=== PATIENT | female | born 1980 | race Caucasian/White ===

== ENCOUNTER 2017-08-04 15:42 | Emergency (ER) | payer MEDICAID ==
[~2017-08-04] VITALS: Ht 162.6 cm; Wt 95.0 kg
[~2017-08-04 15:42] MED LIST: ACET-2178 PO; ALBU2.5V13 NEB; LORA10TA7 PO; NORT25CA PO; TOPI50TA24 PO
[2017-08-04 22:56] VITALS: BP 137/73
== END 2017-08-04 22:59 | disposition home or self-care (01) ==
LOC: ER 16:23
DX: J20.9 Acute bronchitis, unspecified (principal); J45.909 Unspecified asthma, uncomplicated
CPT/HCPCS: 71045; 99283

== ENCOUNTER 2022-06-24 09:56 | Emergency (ER) | payer MEDICAID, OTHER ==
[~2022-06-24] VITALS: Ht 167.6 cm; Wt 105.0 kg
[~2022-06-24 09:56] MED LIST changes: -ACET-2178 PO; +TOPUD PO
[2022-06-24] MEDS ORDERED: KETOROLAC 30MG/ML VIAL IM ONE (13:45)
[2022-06-24 14:38] VITALS: BP 152/84
[2022-06-24 15:05] LABS: CLARITY URINE CLOUDY (CLEAR); COLOR URINE YELLOW (YELLOW); KETONES URINE NEGATIVE (NEGATIVE); LEUKOCYTE ESTERASE URINE 2+ (NEGATIVE); NITRITE URINE NEGATIVE (NEGATIVE); OCCULT BLOOD URINE NEGATIVE (NEGATIVE); PROTEIN URINE NEGATIVE (NEGATIVE); SPECIFIC GRAVITY URINE 1.021 (1.005-1.030); UROBILINOGEN URINE 0.2 E.U./dL (0.2-1.0)
[2022-06-24 15:10] LABS: UCG SCREEN NEGATIVE
[2022-06-24 15:23] LABS: BASOPHILS % 0.6 % (0.0-2.0); EOSINOPHILS % 4.1 % (0.0-5.0); HEMATOCRIT. 46.5 % (36.0-48.0); HEMOGLOBIN. 15.1 g/dL (12.0-16.0); LYMPHOCYTES % 37.4 % (20.0-50.0); MEAN CORPUSCULAR HEMOGLOBIN 29.5 pg (28.0-32.0); MEAN CORPUSCULAR VOLUME 90.9 fL (81.0-99.0); MEAN PLATELET VOLUME 10.4 fl (7.4-10.4); NEUTROPHILS % 52.9 % (40.0-76.0); PLATELET 207 x1000/uL (130-400); RED BLOOD CELL COUNT 5.11 mill/uL (4.2-5.4); RED CELL DISTRIBUTION WIDTH 13.5 % (11.6-14.6)
[2022-06-24 15:46] LABS: CHLORIDE 109 mEq/L (98-107)
[2022-06-24] MEDS ORDERED: IOHEXOL-300 100 ML BOTTLE ONE (17:41)
[2022-06-24] MEDS ORDERED: CEPH250C2 MT (18:11)
== END 2022-06-24 18:48 | disposition home or self-care (01) ==
LOC: ER 09:56
DX: R10.32 Left lower quadrant pain (principal); J45.909 Unspecified asthma, uncomplicated; Z86.011 Personal history of benign neoplasm of the brain; Z98.890 Other specified postprocedural states
CPT/HCPCS: 36415; 74177; 80053; 81003; 81025; 83605; 83690; 85025; 96372; 99285; J1885; Q9967

== ENCOUNTER 2024-12-28 08:18 | Emergency (ER) | payer OTHER ==
[~2024-12-28] VITALS: Ht 162.6 cm; Wt 112.0 kg
[~2024-12-28 08:18] MED LIST changes: +CEPH250C2 MT; +TOPI-95 PO; -TOPI50TA24 PO
[2024-12-28 08:28] VITALS: O2SAT 100
[2024-12-28 08:50] LABS: BASOPHILS % 0.4 % (0.0-2.0); EOSINOPHILS % 4.5 % (0.0-5.0); HEMATOCRIT. 39.8 % (36.0-48.0); HEMOGLOBIN. 13.6 g/dL (12.0-16.0); LYMPHOCYTES % 32.4 % (20.0-50.0); MEAN PLATELET VOLUME 9.4 fl (7.4-10.4); MONOCYTES % 5.1 % (2.0-8.0); NEUTROPHILS % 57.6 % (40.0-76.0); PLATELET 227 x1000/uL (130-400); RED BLOOD CELL COUNT 4.57 mill/uL (4.2-5.4); RED CELL DISTRIBUTION WIDTH 13.4 % (11.6-14.6)
[2024-12-28 09:00] LABS: HCG SCREEN NEGATIVE
[2024-12-28 09:03] LABS: CREATININE 0.6 mg/dL (0.6-1.0); UREA NITROGEN BLOOD 10 mg/dL (9-23)
[2024-12-28 09:05] LABS: ASPARTATE AMINOTRANSFERASE 12 IU/L (<34); BILIRUBIN DIRECT 0.2 mg/dL (<=3.0); BILIRUBIN TOTAL 0.6 mg/dL (0.1-1.0); PROTEIN TOTAL 7.1 g/dL (6.0-8.3)
[2024-12-28] MEDS ORDERED: PANTOPRAZOLE 40MG DR TABLET PO STA (09:35)
[2024-12-28] MEDS ORDERED: FAMOTIDINE 20MG TABLET PO ONE (09:45)
[2024-12-28] MEDS ORDERED: MAGNESIUM/ALUMINUM HYDROXIDE/SIMETHICONE 30ML UDC PO ONE (09:45)
[2024-12-28 10:58] LABS: CLARITY URINE CLEAR (CLEAR); COLOR URINE YELLOW (YELLOW); GLUCOSE URINE NEGATIVE (NEGATIVE); KETONES URINE NEGATIVE (NEGATIVE); LEUKOCYTE ESTERASE URINE 1+ (NEGATIVE); NITRITE URINE NEGATIVE (NEGATIVE); OCCULT BLOOD URINE NEGATIVE (NEGATIVE); PH URINE 5.0 (4.5-8.0); PROTEIN URINE NEGATIVE (NEGATIVE); SPECIFIC GRAVITY URINE 1.014 (1.005-1.030); UROBILINOGEN URINE 0.2 E.U./dL (0.2-1.0)
[2024-12-28 11:26] LABS: BACTERIA URINE 1+; SQUAMOUS EPITHELIAL CELL URINE 2+ /lpf (RARE/1+); YEAST URINE NONE SEEN
[2024-12-28] MEDS: MAGNESIUM/ALUMINUM HYDROXIDE/SIMETHICONE 30ML UDC PO NR (11:58)
[2024-12-28] MEDS: PANTOPRAZOLE 40MG DR TABLET PO NR (11:58)
[2024-12-28] MEDS: FAMOTIDINE 20MG TABLET PO NR (11:58)
[2024-12-28] MEDS ORDERED: FAMO-135 MT (12:04)
[2024-12-28] MEDS ORDERED: OMEP20CA14 MT (12:04)
[2024-12-28] MEDS ORDERED: MAG-55 MT (12:04)
[2024-12-28 13:09] VITALS: BP 120/79; PULSE 66; RESP 18; TEMP 36.7; O2SAT 100
== END 2024-12-28 13:12 | disposition home or self-care (01) ==
LOC: ER 08:18
DX: R10.12 Left upper quadrant pain (principal); J45.909 Unspecified asthma, uncomplicated; E66.9 Obesity, unspecified; Z79.899 Other long term (current) drug therapy
CPT/HCPCS: 36415; 74176; 80048; 80076; 81003; 84703; 85025; 93005; 99284